=== PATIENT | female | born 1960 | race Caucasian/White ===

== ENCOUNTER 2019-02-22 09:57 | Outpatient (AMBR) | payer MEDICARE, MEDICAID, SELFPAY ==
--- NOTE | 2019-02-22 10:10 | PTNOTE_ITS ---
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 Pt reports R sided weakness which affects walking, equilibrium and getting up in bed. She hasn't fallen but is afraid of breaking her hip. She can write with her R hand. PLOF: prior to CVA she was independent with all ADL's and work duties. PMH: HTN, allergies, arthritis all over , R knee sx 4 yrs ago Pt goal: not sure since her R knee hurts so much and limits her mobility the most. She wants to take care of the knee. Objective TU.78 sec Tinetti 25/28 [employer] test: R 47 lbs, L hand 40 lbs R LE strength: Quads: 4-/5 limited by pain HS: 4-/5 Squat: to 50% depth with R knee pain Assessment Pt scored well on the TUG test and the Tinetti scored a low fall risk. The R knee is limiting her mobility more than anything and she would like to take care of the that pain first before doing therapy. Therapy is going to be limited by knee pain and PT recommends further diagnostic imaging and consultation for the knee since therapy interventions are likely going to increase knee pain. Short Term and Custodial Goals Eval and D/C Treatment Plan Eval and D/C Certification Dates: 02/22/19 to 03/24/19 Office Procedures PT Procedures PT Date of Service: 02/22/19 OP PT Eval Mod Complex 30 minutes: Yes
== END 2019-03-20 23:59 | disposition home or self-care (01) ==
PROVIDERS: PCP Family Medicine; Referring Provider Family Medicine; Visit Provider Physician Assistant
DX: G81.91 Hemiplegia, unspecified affecting right dominant side (principal); I10 Essential (primary) hypertension
CPT/HCPCS: 97162